=== PATIENT | female | born 1990 | race Asian ===

== ENCOUNTER 2018-03-29 20:50 | Emergency (ER) | payer OTHER ==
[2018-03-29 23:00] LABS: ABS Basophils 0 10^3/ul (0-0.2); ABS Eosinophils 0.1 10^3/ul (0-0.6); ABS Lymphocytes 2.4 10^3/ul (1.0-4.8); ABS Monocytes 0.6 10^3/ul (0-0.8); ABS Neutrophils 6.7 10^3/ul (1.5-7.7); ABS Nucleated RBC 0 10^3/ul; Hematocrit 42 % (35-47); Hemoglobin 14.3 g/dl (12.0-16.0); Lymphocyte % 24.3 % (25-47); Mean Corpuscular HGB Conc 34 g/dl (31-36); Mean Corpuscular Hemoglobin 30 pg (27-31); Mean Corpuscular Volume 90 fL (80-97); Mean Platelet Volume 7.8 um3 (7.4-10.4); Nucleated Red Blood Cells % 0.1; Platelet Count 314 10^3/ul (150-450); Red Blood Count 4.71 10^6/ul (4.00-5.40); Red Cell Distribution Width 13 % (10.5-15); White Blood Count 9.8 10^3/ul (3.5-10.8)
[2018-03-29 23:19] LABS: EGFR Non-African American 99.5 (>60)
--- NOTE | 2018-03-29 23:42 | ED ---
Abdominal Pain/Female - HPI Summary HPI Summary: Patient complains of abdominal cramping, 2 episodes of mild red blood in stool. Abdominal pain described as mild, intermittent, bilateral lower abdomen. Recent return from [place] 03/15/18 with diagnosis of traveler's diarrhea which has since resolved 1 week. Patient denies NSAIDs, aspirin, anticoagulant. Denies fever, cough, sore throat, CP, SOB, N/V/D, change in urine, change in BM , vaginal symptoms. Medical history is none. Abdominal surgical history is none. - History of Current Complaint Chief Complaint: EDGIBleed Stated Complaint: BLOOD IN STOOL Time Seen by Provider: 03/29/18 22:31 Hx Obtained From: Patient Onset/Duration: Sudden Onset Timing: Intermittent Episode Lasting Severity Initially: Mild Severity Currently: Mild Pain Intensity: 2 Pain Scale Used: 0-10 Numeric Location: Diffuse Radiates: No Character: Cramping Aggravating Factor(s): Nothing Alleviating Factor(s): Nothing Associated Signs and Symptoms: Positive: Blood in Stool Allergies/Adverse Reactions: Allergies Allergy/AdvReac Type Severity Reaction Status Date / Time No Known Allergies Allergy Verified 03/29/18 21:00 Home Medications: Home Medications NK [No Home Medications Reported] 03/29/18 [History Confirmed 03/29/18] PMH/Surg Hx/FS Hx/Imm Hx Endocrine/Hematology History: Denies: Hx Anticoagulant Therapy Cardiovascular History: Denies: Hx Cardiac Arrest History: Denies: Hx Dialysis Neurological History: Denies: Hx CVA Infectious Disease History: No Infectious Disease History: Reports: Traveled Outside the [place] in Last 30 Days - Social History Alcohol Use: None Substance Use Type: Reports: None Smoking Status (MU): Never Smoked Tobacco Review of Systems Constitutional: Negative Eyes: Negative ENT: Negative Cardiovascular: Negative Respiratory: Negative Positive: Abdominal Pain Genitourinary: Negative Musculoskeletal: Negative Skin: Negative Neurological: Negative Psychological: Normal All Other Systems Reviewed And Are Negative: Yes Physical Exam - Summary Physical Exam Summary: Abdomen soft nontender. Positive blood in stool on SERGEY. Physical exam otherwise unremarkable. Triage Information Reviewed: Yes Vital Signs On Initial Exam: Initial Vitals Temp Pulse Resp BP Pulse Ox 99.3 F 98 20 109/83 100 03/29/18 20:54 03/29/18 20:54 03/29/18 20:54 03/29/18 20:54 03/29/18 20:54 Vital Signs Reviewed: Yes Appearance: Positive: Well-Appearing Skin: Positive: Warm Head/Face: Positive: Normal Head/Face Inspection Eyes: Positive: Normal Neck: Positive: Supple Respiratory/Lung Sounds: Positive: Clear to Auscultation Cardiovascular: Positive: Normal Abdomen Description: Positive: Nontender Musculoskeletal: Positive: Normal Neurological: Positive: Normal Psychiatric: Positive: Normal AVPU Assessment: Alert - [place] Coma Scale Best Eye Response: 4 - Spontaneous Best Motor Response: 6 - Obeys Commands Best Verbal Response: 5 - Oriented Coma Scale Total: 15 Diagnostics - Vital Signs Vital Signs Temp Pulse Resp BP Pulse Ox 03/29/18 22:28 97 127/96 99 03/29/18 22:27 98 98 03/29/18 20:54 99.3 F 98 20 109/83 100 - Laboratory Lab Results: Lab Results 03/29/18 03/29/18 Range/Units 21:44 21:44 WBC 9.8 (3.5-10.8) 10^3/ul RBC 4.71 (4.00-5.40) 10^6/ul Hgb 14.3 (12.0-16.0) g/dl Hct 42 (35-47) % MCV 90 (80-97) fL MCH 30 (27-31) pg MCHC 34 (31-36) g/dl RDW 13 (10.5-15) % Plt Count 314 (150-450) 10^3/ul MPV 7.8 (7.4-10.4) um3 Neut % (Auto) 68.4 (38-83) % Lymph % (Auto) 24.3 L (25-47) % [place] % (Auto) 5.9 (0-7) % Eos % (Auto) 1.0 (0-6) % Baso % (Auto) 0.4 (0-2) % Absolute Neuts (auto) 6.7 (1.5-7.7) 10^3/ul Absolute Lymphs (auto) 2.4 (1.0-4.8) 10^3/ul Absolute Monos (auto) 0.6 (0-0.8) 10^3/ul Absolute Eos (auto) 0.1 (0-0.6) 10^3/ul Absolute Basos (auto) 0 (0-0.2) 10^3/ul Absolute Nucleated RBC 0 10^3/ul Nucleated RBC % 0.1 Sodium 137 (135-145) mmol/L Potassium 3.8 (3.5-5.0) mmol/L Chloride 104 (101-111) mmol/L Carbon Dioxide 26 (22-32) mmol/L Anion Gap 7 (2-11) mmol/L BUN 14 (6-24) mg/dL Creatinine 0.71 (0.51-0.95) mg/dL Est GFR ( Amer) 120.4 (>60) Est GFR (Non-Af Amer) 99.5 (>60) BUN/Creatinine Ratio 19.7 (8-20) Glucose 129 H (70-100) mg/dL Calcium 9.6 (8.6-10.3) mg/dL Total Bilirubin 0.30 (0.2-1.0) mg/dL AST 20 (13-39) U/L ALT 25 (7-52) U/L Alkaline Phosphatase 60 (34-104) U/L Total Protein 8.1 (6.4-8.9) g/dL Albumin 4.6 (3.2-5.2) g/dL Globulin 3.5 (2-4) g/dL Albumin/Globulin Ratio 1.3 (1-3) Beta HCG, Quant < 0.60 mIU/mL Result Diagrams: 03/29/18 21:44 03/29/18 21:44 Lab Statement: Any lab studies that have been ordered have been reviewed, and results considered in the medical decision making process. Abdominal Pain Fem Course/Dx - Course Course Of Treatment: Patient complains of abdominal cramping, 2 episodes of mild red blood in stool. Abdominal pain described as mild, intermittent, bilateral lower abdomen. Recent return from [place] 03/15/18 with diagnosis of traveler's diarrhea which has since resolved 1 week. Patient denies NSAIDs, aspirin, anticoagulant. Denies fever, cough, sore throat, CP, SOB, N/V/D, change in urine, change in BM, vaginal symptoms. Medical history is none. Abdominal surgical history is none. Physical exam: Positive blood on SERGEY. Abdomen soft nontender. red Blood in stool 2. Hemoccult positive. No history of same. Hemoglobin unremarkable. Follow-up with GI - Diagnoses Provider Diagnoses: Rectal bleed Discharge - Sign-Out/Discharge Documenting (check all that apply): Patient Departure - Discharge Plan Condition: Stable Disposition: HOME Patient Education Materials: Rectal Bleeding (ED) Referrals: No Primary Care Phys,NOPCP [Primary Care Provider] - Kenton Mark MD [Medical Doctor] - Additional Instructions: Follow-up with license distributor Dr. Mark. Return to the ED for any new or worsening symptoms - Billing Disposition and Condition Condition: STABLE Disposition: Home
[2018-03-29 23:52] VITALS: BP 122/84
== END 2018-03-29 23:52 | disposition home or self-care (01) ==
LOC: ED 20:50
DX: K62.5 Hemorrhage of anus and rectum (principal)
CPT/HCPCS: 36415; 80053; 82270; 84702; 85025; 99282